=== PATIENT | male | born 1985 | race Caucasian/White ===

== ENCOUNTER 2017-04-24 11:41 | Inpatient (IN) ==
[2017-04-24] MEDS ORDERED: DILAUDID 1 MG/ML SYRINGE IM STA (12:05)
[2017-04-24] MEDS ORDERED: ZOFRAN 4 MG/2 ML IM STA (12:06)
[2017-04-24] MEDS ORDERED: THIAMINE IM STA (12:06)
[2017-04-24] MEDS ORDERED: ZOFRAN 4 MG/2 ML IVP STA (12:13)
[2017-04-24] MEDS ORDERED: DILAUDID 1 MG/ML SYRINGE IVP STA (12:13)
[2017-04-24] MEDS ORDERED: THIAMINE ONE (12:31)
--- NOTE | 2017-04-24 12:54 | ED.PDOC ---
General ED Provider: Dr. SUSHILA FERNÁNDEZ Chief Complaint: Abdominal Pain Stated Complaint: abdominal pain epigastric Time Seen by Physician: 12:00 (this pt admitts to drinking excessively on the day of ) Mode of Arrival: Walk-In Information Source: Patient Exam Limitations: No limitations Referred to ED by: Other (no trauma reported ) Nursing and Triage Documentation Reviewed and Agree: Yes (history of pancratitis in the past ) Reviewed sepsis parameters & appropriate labs ordered?: Yes System Inflammatory Response Syndrome: Not Applicable Sepsis Protocol: For patient's 13 years and over: Temp is 96.8 and below OR 101 and greater Pulse >90 BPM Resp >20/minute Acutely Altered Mental Status Are patient's symptoms suggestive of a new infection, such as: -Pneumonia -Skin, Soft Tissue -Endocarditis -UTI -Bone, Joint Infection -Implantable Device -Acute Abdominal Infection -Wound Infection -Meningitis -Blood Stream Catheter Infection -Unknown GI Complaint Exam - Vomiting/Diarrhea Complaint/Exam Onset/Duration: since Symptoms Are: Still present Episodes of Vomiting over last 24 Hours: 7 Episodes of Diarrhea Over Last 24 Hours: 0 Initial Severity: Moderate Current Severity: Moderate Character of Vomiting: Reports: Non-bilious Aggravating: Reports: Food, Liquids, Position Alleviating: Reports: NPO, Lying still, Medications Associated Signs and Symptoms: Denies: Dizziness, Light-headedness, Melena, Hematemesis, Fever, Abdominal pain, Cramping Related History: Reports: Similar episode Last Bowel Movement: 1 day Non-GI Risk Factors: Reports: None Surgical Obstruction Risk Factors: Reports: None Related Surgical History: Reports: None Abdominal Findings: Present: Rebound tenderness, McBurney's Point tender. Absent: Pulsatile mass, Abdominal distention, Unequal femoral pulses Rectal Exam: Present: Normal Findings Kussmaul Respirations Present: No Differential Diagnoses: Dehydration, Gastritis, PUD, Viral Gastroenteritis, Pancreatitis Review of Systems - Review Of Systems Constitutional: Reports: No symptoms Eyes: Reports: No symptoms Ears, Nose, Mouth, Throat: Reports: No symptoms Respiratory: Reports: Cough Cardiac: Reports: No symptoms GI: Reports: No symptoms : Reports: No symptoms Musculoskeletal: Reports: No symptoms Skin: Reports: No symptoms Neurological: Reports: No symptoms Endocrine: Reports: No symptoms Hematologic/Lymphatic: Reports: No symptoms All Other Systems: Reviewed and Negative Past Medical History - Past Medical History Previously Healthy: Yes Endocrine: Reports: None Cardiovascular: Reports: None Respiratory: Reports: None Hematological: Reports: None Gastrointestinal: Reports: None Genitourinary: Reports: None Neuro/Psych: Reports: None Musculoskeletal: Reports: None Cancer: Reports: None - Surgical History General Surgical History: Reports: None - Family History Family History: Reports: Unknown - Social History Smoking Status: Current every day smoker, Heavy tobacco smoker Hx Substance Use: No Alcohol Screening: Occasionally Physical Exam - Physical Exam Appearance: Well-appearing, No pain distress, Well-nourished Eyes: ELENITA, EOMI, Conjunctiva clear ENT: Ears normal, Nose normal, Oropharynx normal Respiratory: Airway patent, Breath sounds clear, Breath sounds equal, Respirations nonlabored Cardiovascular: RRR, Pulses normal, No rub, No murmur GI/: Soft, Nontender, No masses, Bowel sounds normal, No Organomegaly Musculoskeletal: Normal strength, ROM intact, No edema, No calf tenderness Skin: Warm, Dry, Normal color Neurological: Sensation intact, Motor intact, Reflexes intact, Cranial nerves intact, Alert, Oriented Psychiatric: Affect appropriate, Mood appropriate Critical Care Note - Critical Care Note Total Time (mins): 0 Course - Course Hematology/Chemistry: 04/24/17 12:15 04/24/17 12:15 Orders, Labs, Meds: Lab Review 04/24/17 04/24/17 12:15 12:15 WBC 15.49 H RBC 5.73 Hgb 18.1 H Hct 49.3 MCV 86.0 MCH 31.6 H MCHC 36.7 H RDW Coeff of [place] 11.9 Plt Count 283 Immature Gran % (Auto) 0.4 Neut % (Auto) 68.3 Lymph % (Auto) 23.5 [place] % (Auto) 7.3 Eos % (Auto) 0.1 Baso % (Auto) 0.4 Immature Gran # (Auto) 0.1 Neut # 10.6 H Lymph # 3.6 H [place] # 1.1 Eos # 0.0 Baso # 0.1 Sodium 138 Potassium 3.1 L Chloride 97 L Carbon Dioxide 26 Anion Gap 18.1 BUN 22 H Creatinine 1.08 Estimated GFR (MDRD) 79.00 BUN/Creatinine Ratio 20.37 Glucose 134 H Calcium 10.4 H Total Bilirubin 1.5 H AST 21 ALT 28 Alkaline Phosphatase 110 Total Protein 8.4 H Albumin 4.3 Globulin 4.1 Albumin/Globulin Ratio 1.05 Amylase 61 Lipase 9 Orders Category Date Time Status AMYLASE Stat LAB 04/24/17 12:15 Completed CBC W/ AUTO DIFF Stat LAB 04/24/17 12:15 Completed COMPREHENSIVE METABOLIC PANEL Stat LAB 04/24/17 12:15 Completed LIPASE Stat LAB 04/24/17 12:15 Completed UA [URINALYSIS C & S IF INDICATED] Stat LAB 04/24/17 12:51 Ordered Hydromorphone HCl [Dilaudid 1 mg/ml Syringe] MEDS 04/24/17 12:13 Discontinued 1 mg IVP ONCE STA Ondansetron HCl/Pf [Zofran 4 mg/2 ml] MEDS 04/24/17 12:13 Discontinued 4 mg IVP ONCE STA Vitamin B-1 Inj [Thiamine] MEDS 04/24/17 12:06 Discontinued 100 mg IM ONCE STA CT ABDOMEN/PELVIS WO CONTRAST Stat RADS 04/24/17 12:04 Ordered Medications Discontinued Medications Generic Name Dose Route Start Last Admin Trade Name Misty PRN Reason Stop Dose Admin Hydromorphone HCl 1 mg 04/24/17 12:13 04/24/17 12:28 Dilaudid 1 Mg/Ml Syringe IVP 04/24/17 12:14 1 mg ONCE STA Administration Ondansetron HCl 4 mg 04/24/17 12:13 04/24/17 12:30 Zofran 4 Mg/2 Ml IVP 04/24/17 12:14 4 mg ONCE STA Administration Thiamine HCl 100 mg 04/24/17 12:06 04/24/17 12:31 Thiamine IM 04/24/17 12:07 200 mg ONCE STA Administration Vital Signs: Temp Pulse Resp BP Pulse Ox 04/24/17 11:42 99.5 F 94 H 40 H 140/96 H 98 Departure - Departure Time of Disposition: 12:59 Disposition: TSF SHORT-TRM HOSP Discharge Problem: Abdominal pain Instructions: Abdominal Pain (ED) Condition: Good Pt referred to PMD for follow-up: Yes Additional Instructions: Please call your Family Physician as soon as possible to schedule a follow-up appointment. Allergies/Adverse Reactions: Allergies No Known Allergies Allergy (Verified 04/24/17 11:50) Home Medications: Ambulatory Orders 1 [No Reported Medications] 04/24/17 Disposition Discussed With: Patient
--- NOTE | 2017-04-24 13:04 | CT ---
Exam: CT of the abdomen pelvis without intravenous contrast. Comparison: 09/14/2014. Reason for exam: Epigastric pain with alcoholism FINDINGS: No pleural effusion, or focal consolidation in the partially imaged lung bases. No intra-abdominal free air or pelvic free fluid. The liver, spleen, gallbladder, pancreas, and adrenal glands appear grossly unremarkable within the l imitations of a noncontrasted study. Image interpretation is limited by the lack of intravenous contrast administration. No hydronephrosis, hydroureter, or nephrolithiasis in either kidney. No focal small bowel dilatation or transition point. The appendix is grossly unremarkable as seen on coronal imaging 29 - 37. The pelvic structures appear grossly unremarkable. No suspicious appearing osteoblastic or osteolytic lesions. Cutaneous density is seen in the region of the right carrillo pelvis. Nonspecific prominence of the right groin lymph node on axial image number 41 measuring 1.7 cm. Impression: No acute inflammatory findings are seen within the abdomen or pelvis. Report faxed at [id number] hours on 04/24/2017.
[2017-04-24] MEDS ORDERED: PROTONIX IV IVP STA (13:05)
[2017-04-24] MEDS ORDERED: CARAFATE PO STA (13:06)
[2017-04-24] MEDS ORDERED: VALIUM SYRINGE IVP STA (13:08)
[2017-04-24] MEDS ORDERED: ZOFRAN 4 MG/2 ML IVP PRN (13:09)
[2017-04-24] MEDS ORDERED: SODIUM CHLORIDE 1,000 ML IV SCH (13:30)
[2017-04-24] MEDS: FOLIC ACID 1 MG, INFUVITE ADULT 10 ML, THIAMINE 100 MG in SODIUM CHLORIDE 1,000 ML IV SCH ×2 (14:37→23:31)
[2017-04-24 17:57] VITALS: BMI 29.9
[2017-04-24] MEDS: MORPHINE 2 MG/ML SYRINGE IVP PRN ×2 (18:05→23:50)
[2017-04-24] MEDS ORDERED: POTASSIUM CHLORIDE 10 MEQ VIAL-ADDITIVE ONLY 20 MEQ in SODIUM CHLORIDE 1,000 ML IV SCH (23:40)
[2017-04-24] MEDS: PROTONIX IV IVP SCH (23:50)
[2017-04-24] MEDS: ZOFRAN 4 MG/2 ML IVP PRN (23:51)
[2017-04-24] MEDS: SODIUM CHLORIDE 0.9%-KCL 20 MEQ 1,000 ML IV SCH (23:54)
[2017-04-25] MEDS: CARAFATE PO SCH ×4 (05:37→20:02)
[2017-04-25] MEDS: GI COCKTAIL PO PRN ×3 (08:42→21:56)
[2017-04-25] MEDS ORDERED: ZESTRIL PO SCH (09:00)
--- NOTE | 2017-04-25 12:00 | HP ---
DATE OF SERVICE: 04/24/17 CHIEF COMPLAINT: Nausea and vomiting HISTORY OF PRESENT ILLNESS: This is a 31 year old male with history of chronic pancreatitis came to the emergency room with abdominal pain, epigastric area radiating dull type, aching type 10 out of 10. Started two days ago when he had a drink of 1 pint of Vodka and crown on the [place] night. Pain is severe and says that ever since vomiting not able to keep anything down. Nonbilius and nonbloody vomiting. Came to the emergency room with complaint of hyperventilation and numbness to hands and mouth. The patient was seen by Dr. Ely in the emergency room. Temperature 99.5, blood pressure 142/96, WBC 15,000 with left shift, potassium 3.9, glucose 134, Amylase and lipase was negative and CT of abdomen is negative. The patient was given a dose of Dilaudid and Morphine. Still patient was not able to keep anything down and keeps vomiting. At that time the patient was admitted to the hospital for acute gastritis, acute on chronic pancreatitis and dehydration and hyperkalemia. REVIEW OF SYSTEMS: CONSTITUTIONAL: No fever, no chills. HEENT: Normal. ENDOCRINE: No weight gain; no weight loss. CVS: No chest pain. No PND, no orthopnea. No shortness of breath. No PND, no orthopnea. RESPIRATORY: No cough, no congestion. No hemoptysis. GI: No nausea, no vomiting. No abdominal pain. No melena. : No hematuria. No polyuria. MUSCULOSKELETAL: No joint swelling. PSYCHIATRIC: Not anxious. No depression. No suicidal thoughts. No homicidal thoughts. SKIN: Intact, no open lesions. PAST MEDICAL HISTORY: GERD Chronic pancreatitis Depression Substance use Alcohol use Tobacco use PAST SURGICAL HISTORY: No known surgeries. PERSONAL HISTORY: Substance use, alcohol use and tobacco use. Family history is significant for none because the patient is adopted. MEDICATIONS: None. ALLERGIES: NO known medications. PHYSICAL EXAMINATION: V/S: Blood pressure 140/96, respiratory rate 40, temperature 99.1, saturation 98 , pulse rate 94. GENERAL: Sick looking man lying in the bed in pain. HEENT: Atraumatic, normocephalic. No scleral icterus. Pallor positive. Mucosa dry. NECK: Supple. No JVD, no bruit. No lymphadenopathy. No thyromegaly. HEART: S1, S2 normal. No murmur. No cyanosis or clubbing. No ascites. LUNGS: Clear to auscultation. No rales or rhonchi. ABDOMEN: Soft, nontender. Bowel sounds are hyperactive. No CVA tenderness. Epigastric discomfort and tenderness are positive. EXTREMITIES: No cyanosis, clubbing or pedal edema. MUSCULOSKELETAL: Normal joints, no swelling. NEUROLOGIC: The patient is SKIN: Intact; no open lesions. LYMPHATIC: No lymph nodes palpable. LABS: Sodium 138, potassium 3.1, chloride 97, bicarb 26, BUN 22, creatinine 1.08, glucose 134, calcium 10.4, total bilirubin 1.5, WBC 15.49, hgb 18.1, hct 41.9, plt count 283, urine leukocyte esterase negative, nitrate negative. ASSESSMENT: 1. Acute gastritis 2. Dehydration 3. Hypokalemia 4. Acute on chronic pancreatitis PLAN: 1. Admit patient to the regular floor 2. CBC and CMP today and daily 3. Cardiac and enzymes and troponin 4. IV fluids 5. Protonix 40mg PO twice a day 6. Carafate and HS. 7. Morphine Q 4 hours PRN TIME SPENT: MORE THAN 75 minutes MTDD
[2017-04-25] MEDS: MORPHINE 2 MG/ML SYRINGE IVP PRN ×2 (12:10→17:41)
[2017-04-25] MEDS: PROTONIX IV IVP SCH ×2 (13:55→20:03)
[2017-04-25] MEDS: SODIUM CHLORIDE 0.9%-KCL 20 MEQ 1,000 ML IV SCH (13:59)
[2017-04-25] MEDS: ZOFRAN 4 MG/2 ML IVP PRN ×2 (14:05→19:48)
[2017-04-25] MEDS ORDERED: MORPHINE 2 MG/ML SYRINGE IVP STA (19:49)
[2017-04-26] MEDS: GI COCKTAIL PO PRN (02:44)
[2017-04-26] MEDS: MORPHINE 2 MG/ML SYRINGE IVP PRN ×3 (03:57→13:07)
[2017-04-26] MEDS: CARAFATE PO SCH ×4 (05:32→21:13)
[2017-04-26] MEDS: SODIUM CHLORIDE 0.9%-KCL 20 MEQ 1,000 ML IV SCH ×2 (06:18→19:51)
[2017-04-26] MEDS: ZESTRIL PO SCH ×2 (08:39→21:13)
[2017-04-26] MEDS: PROTONIX IV IVP SCH ×2 (08:54→21:13)
--- NOTE | 2017-04-26 15:14 | PN ---
DATE OF SERVICE: 04/25/17 SUBJECTIVE: The patient was admitted with severe abdominal pain, acute on chronic pancreatitis. All night the patient was still puking and not able to keep anything down. Complains about the pain around 8 out of 10. REVIEW OF SYSTEMS: CONSTITUTIONAL: No fever, no chills. HEENT: Normal. ENDOCRINE: No weight gain, no weight loss. CVS: No angina symptoms. No CHF symptoms. No palpitations. No atypical chest pain for CAD. No shortness of breath. No PND, no orthopnea. RESPIRATORY: No cough, no hemoptysis. GI: No nausea, no vomiting. No abdominal pain. : No hematuria. No polyuria. MUSCULOSKELETAL:. No joint swelling. PSYCHIATRIC: Not anxious. No depression. No suicidal thoughts. No homicidal thoughts. SKIN: Intact. No rash. PHYSICAL EXAMINATION: V/S: Blood pressure 158/94, respiratory rate 16, heart rate 64, temperature 97.9 with saturation 99. HEENT: Normocephalic, atraumatic. Mucosa dry. Epigastric tenderness present. NECK: Supple. No JVD, no carotid bruit. No lymphadenopathy. LUNGS: Clear to auscultation. No rales or rhonchi. HEART: S1, S2 normal. No S3. No murmur, gallop or regurgitation. ABDOMEN: Soft, nontender. Bowel sounds hyperactive. No rigidity. No rebound or guarding. No CVA tenderness. EXTREMITIES: No clubbing, cyanosis or pedal edema. MUSCULOSKELETAL: No joint swelling. NEUROLOGIC: Awake, alert, oriented times three. No focal deficit. LYMPHATIC: No lymph nodes palpable. SKIN: Intact. LABS: WBC 13.24, hgb 17.2, hct 48.96, plt count 266, sodium 141,. potassium 3.3, chloride 100, bicarb 31, BUN 21, creatinine 0.96, glucose 107, total bilirubin 1.9 ASSESSMENT: 1. Intractable nausea and vomiting 2. Abdominal pain 3. Gastritis 4. Acute on chronic pancreatitis, CT abdomen is normal 5. Hypokalemia 6. Elevated total bilirubin 7. Status post cholecystectomy PLAN: 1. GI cocktail every 4 hours as needed 2. IV fluids 3. Morphine Q 4hour PRN 4. Zofran PRN 5. Protonix 40mg twice a day 6. IV fluids at 75ml per hour TIME SPENT: More than 35 minutes MTDD
[2017-04-27] MEDS: CARAFATE PO SCH ×4 (05:33→20:31)
[2017-04-27] MEDS: SODIUM CHLORIDE 0.9%-KCL 20 MEQ 1,000 ML IV SCH (08:36)
[2017-04-27] MEDS: ZESTRIL PO SCH ×2 (08:36→20:30)
[2017-04-27] MEDS: PROTONIX IV IVP SCH ×2 (08:36→20:05)
[2017-04-27] MEDS: ZOFRAN 4 MG/2 ML IVP PRN (08:45)
[2017-04-28] MEDS: MORPHINE 2 MG/ML SYRINGE IVP PRN (00:11)
[2017-04-28] MEDS: SODIUM CHLORIDE 0.9%-KCL 20 MEQ 1,000 ML IV SCH (00:14)
[2017-04-28] MEDS: CARAFATE PO SCH ×2 (05:44→10:52)
[2017-04-28] MEDS: ZESTRIL PO SCH (09:22)
[2017-04-28] MEDS: PROTONIX IV IVP SCH (09:22)
[2017-04-28 11:14] VITALS: BP 129/78; TEMP 97.6
--- NOTE | 2017-05-02 14:13 | DS ---
DATE OF SERVICE: 04/28/17 FINAL DIAGNOSIS: 1. Intractable nausea and vomiting 2. Dehydration 3. Acute on chronic pancreatitis 4. Hypokalemia which is better. 5. Elevated total bilirubin CT scan of abdomen and pelvis normal DISCHARGE INSTRUCTIONS: Discharge the patient home. Informed about the alcohol anonymous group but the patient promised that he is not drinking anymore. MEDICATIONS AT DISCHARGE: None NEW PRESCRIPTIONS: Carafate 1gram AC and HS Zantac 150mg PO twice a day DIET INSTRUCTIONS: Soft diet Increase hydration No alcohol. ACTIVITY: As much as tolerated. SMOKING: Heavy Tobacco smoker. DISEASE SPECIFIC EDUCATION: Gastritis Need for the endoscopy Dehydration been discussed and verbalized understanding. HOSPITAL COURSE: Iftikhar Parkinson who is a 31 year old male came to the emergency room on the April 24 after having some alcohol for the adflyer the patient started having vomiting, abdominal pain and not able to keep anything down. Pain was 10 out of 10. Came and saw Dr. Ely. Initial WBC was 15,000, potassium was 3.1, glucose 134. CT of abdomen and pelvis was negative. After giving Morphine and Zofran the patient was still not able to keep anything down so admitted to the hospital. The patient was also has history of acute on chronic pancreatitis. With the given GI cocktail, Morphine and IV fluids and NPO the patient was better within 2 days. Pain was improving with GI cocktail. Then we started the clear liquid diet and was able to tolerate. Did not have any problems then soft diet was introduced and was able to tolerate. At that time the patient was being discharged home on the Carafate and Zantac. Advised definite followup at [facility] as that we can get him to the GI specialist for the endoscopy and colonoscopy. TIME SPENT: MORE THAN 55 MINUTES MTDD
--- NOTE | 2017-05-02 15:37 | PN ---
DATE OF SERVICE: 04/27/17 SUBJECTIVE: Nausea and vomiting is better with the Morphine and GI cocktail and was able to keep the clear liquids down. REVIEW OF SYSTEMS: CONSTITUTIONAL: No fever, no chills. HEENT: Normal. ENDOCRINE: No weight gain, no weight loss. CVS: No angina symptoms. No CHF symptoms. No palpitations. No atypical chest pain for CAD. No shortness of breath. No PND, no orthopnea. RESPIRATORY: No cough, no hemoptysis. GI: No nausea, no vomiting. Abdominal pain better. : No hematuria. No polyuria. MUSCULOSKELETAL: No joint swelling. PSYCHIATRIC: Not anxious. No depression. No suicidal thoughts. No homicidal thoughts. SKIN: Intact. No rash. PHYSICAL EXAMINATION: V/S: Blood pressure 117/79, respiratory rate 18, heart rate 62, temperature 98.5 and saturation 98. HEENT: Normocephalic, atraumatic. Mucosa dry. No epigastric tenderness. NECK: Supple. No JVD, no carotid bruit. No lymphadenopathy. LUNGS: Clear to auscultation. No rales or rhonchi. HEART: S1, S2 normal. No S3. No murmur, gallop or regurgitation. ABDOMEN: Soft, nontender. Bowel sounds active. No rigidity. No rebound or guarding. No CVA tenderness. EXTREMITIES: No clubbing, cyanosis or pedal edema. MUSCULOSKELETAL: No joint swelling. NEUROLOGIC: Awake, alert, oriented times three. No focal deficit. LYMPHATIC: No lymph nodes palpable. SKIN: Intact. LABS: WBC 11.45, hgb 17.2, hct 50.1, plt count 270, sodium 147, potassium 3.7, chloride 108, bicarb 30, BUN 20, creatinine 0.84 and glucose 81. ASSESSMENT: 1. Status post acute on chronic pancreatitis 2. Acute gastritis 3. Intractable nausea and vomiting 4. Hypokalemia which is better PLAN: 1. Soft diet 2. Continue Protonix and Carafate TIME SPENT: More than 35 minutes MTDD
--- NOTE | 2017-05-03 09:00 | PN ---
DATE OF SERVICE: 04/26/17 SUBJECTIVE: The patient was admitted with nausea and vomiting, intractable abdominal pain and acute on chronic pancreatitis. The patient was given a GI cocktail and Morphine which is helping his pain and not able to vomit. REVIEW OF SYSTEMS: CONSTITUTIONAL: No fever, no chills. HEENT: Normal. ENDOCRINE: No weight gain, no weight loss. CVS: No angina symptoms. No CHF symptoms. No palpitations. No atypical chest pain for CAD. No shortness of breath. No PND, no orthopnea. RESPIRATORY: No cough, no hemoptysis. GI: No nausea, no vomiting. No abdominal pain. : No hematuria. No polyuria. MUSCULOSKELETAL: No joint swelling. PSYCHIATRIC: Not anxious. No depression. No suicidal thoughts. No homicidal thoughts. SKIN: Intact. No rash. PHYSICAL EXAMINATION: V/S: Blood pressure 145/95, respiratory rate 20, heart rate 60, temperature 97.9 , saturation 99. GENERAL: Sick looking man. HEENT: Normocephalic, atraumatic. Mucosa dry. NECK: Supple. No JVD, no carotid bruit. No lymphadenopathy. LUNGS: Clear to auscultation. No rales or rhonchi. HEART: S1, S2 normal. No S3. No murmur, gallop or regurgitation. ABDOMEN: Soft, epigastric tenderness is present. Bowel sounds hyperactive. No rigidity. No rebound or guarding. No CVA tenderness. EXTREMITIES: No clubbing, cyanosis or pedal edema. MUSCULOSKELETAL: No joint swelling. NEUROLOGIC: Awake, alert, oriented times three. No focal deficit. LYMPHATIC: No lymph nodes palpable. SKIN: Intact. LABS: WBC 11.45, hgb 17.2, hct 50.1, plt count 270, sodium 147, potassium 3.7, chloride 108, bicarb 30, BUN 20, creatinine 0.84, glucose 81. ASSESSMENT: 1. Acute on chronic pancreatitis 2. Intractable nausea and vomiting 3. Dehydration PLAN: 1. Morphine Q 6 hours PRN 2. GI cocktail 3. Carafate 4. Clear liquid diet Will follow the patient in daily rounds. TIME SPENT: More than 35 minutes MTDD
== END 2017-04-28 15:15 | disposition home or self-care (01) | DRG 391 ==
LOC: ED 11:41 → MEDSURG A 16:50
PROVIDERS: ADMIT Emergency Medicine; ATTEND Emergency Medicine
DX: R11.2 Nausea with vomiting, unspecified (principal); K85.90 Acute pancreatitis without necrosis or infection, unspecified; K86.1 Other chronic pancreatitis; R10.13 Epigastric pain; K29.70 Gastritis, unspecified, without bleeding; R10.829 Rebound abdominal tenderness, unspecified site; E86.0 Dehydration; E87.6 Hypokalemia; R79.89 Other specified abnormal findings of blood chemistry; F17.200 Nicotine dependence, unspecified, uncomplicated
CPT/HCPCS: 36415; 80053; 81001; 82150; 82962; 83690; 85025; 93005; 93010; 96361; 96372; 96374; 96375; 99284